=== PATIENT | female | born 1980 | race Caucasian/White ===

== ENCOUNTER 2022-04-02 16:18 | Emergency (ER) | payer BC ==
[2022-04-02] MEDS ORDERED: Sodium Chloride 0.9% 10 ML Syringe FLUSH PRN (16:25)
[2022-04-02 16:32] VITALS: BP 147/88; PULSE 99
[2022-04-02 16:52] LABS: ANION GAP 18.5 meq/L (7-15)
== END 2022-04-02 18:26 | disposition home or self-care (01) ==
LOC: LL.ED 16:18
DX: E16.2 Hypoglycemia, unspecified (principal); R40.4 Transient alteration of awareness; J44.9 Chronic obstructive pulmonary disease, unspecified; E78.00 Pure hypercholesterolemia, unspecified; I10 Essential (primary) hypertension; F17.210 Nicotine dependence, cigarettes, uncomplicated; E66.9 Obesity, unspecified; Z68.20 Body mass index [BMI] 20.0-20.9, adult
CPT/HCPCS: 36415; 80053; 83735; 85025; 93005; 99285

== ENCOUNTER 2022-10-07 12:42 | Emergency (ER) | payer BC ==
[2022-10-07 13:23] LABS: CHLORIDE,CL 108 mmol/L (98-107); SODIUM,NA 143 mmol/L (136-145)
[2022-10-07 13:24] LABS: ANION GAP 14.5 meq/L (7-15); ESTIMATED GFR 92 mL/min (>=60)
[2022-10-07] MEDS ORDERED: Acetaminophen 500 MG Tab PO ONE (14:01)
[2022-10-07] MEDS ORDERED: traMADol 50 MG Tab PO ONE ×2 (14:06→16:15)
[2022-10-07 15:15] LABS: HEMOGLOBIN A1C 5.1 % (4.3-5.7)
[2022-10-07] MEDS ORDERED: Ketorolac 30 MG/ML SDV IVPUSH ONE (16:13)
[2022-10-07 17:12] VITALS: BP 131/93; PULSE 84
== END 2022-10-07 16:42 | disposition home or self-care (01) ==
LOC: LL.ED 12:42
DX: S00.83XA Contusion of other part of head, initial encounter (principal); R55 Syncope and collapse; E16.2 Hypoglycemia, unspecified; J44.9 Chronic obstructive pulmonary disease, unspecified; E78.00 Pure hypercholesterolemia, unspecified; I10 Essential (primary) hypertension; E66.9 Obesity, unspecified; Z68.30 Body mass index [BMI] 30.0-30.9, adult; Z88.8 Allergy status to other drugs, medicaments and biological substances; W18.30XA Fall on same level, unspecified, initial encounter
CPT/HCPCS: 36415; 70450; 72100; 72125; 72200; 80053; 81001; 82947; 83036; 85025; 96374; 99284; 99285-25; A9270-GY; J1885

== ENCOUNTER 2024-01-13 09:47 | Emergency (ER) | payer BC ==
[2024-01-13 10:11] VITALS: BP 128/96; PULSE 71
[2024-01-13] MEDS: metroNIDAZOLE 500 MG Tab PO ONE (11:10)
[2024-01-13] MEDS: Ketorolac 30 MG/ML SDV IM ONE (11:11)
[2024-01-13] MEDS: Lidocaine 1% 5 ML VIAL ONE (11:11)
[2024-01-13] MEDS: cefTRIAXone 1 GM Vial IM ONE (11:11)
== END 2024-01-13 11:45 | disposition home or self-care (01) ==
LOC: LL.ED 09:47
DX: K04.7 Periapical abscess without sinus (principal); I10 Essential (primary) hypertension; J44.9 Chronic obstructive pulmonary disease, unspecified; E78.00 Pure hypercholesterolemia, unspecified; F17.210 Nicotine dependence, cigarettes, uncomplicated; E66.9 Obesity, unspecified; Z88.0 Allergy status to penicillin; Z88.5 Allergy status to narcotic agent; Z88.8 Allergy status to other drugs, medicaments and biological substances; Z79.2 Long term (current) use of antibiotics; Z79.899 Other long term (current) drug therapy; Z68.22 Body mass index [BMI] 22.0-22.9, adult; Z86.19 Personal history of other infectious and parasitic diseases
CPT/HCPCS: 96372; 99283; A9270-GY; J0696; J1885; J3490